=== PATIENT | female | born 1980 | race American Indian/Alaskan Native ===

== ENCOUNTER 2016-11-23 01:15 | Emergency (ER) | payer BC ==
[2016-11-23] MEDS ORDERED: TETRACAINE 0.5% ONE (04:02)
[2016-11-23] MEDS ORDERED: FUL-GLO OP ONE ×2 (04:02→04:03)
[2016-11-23] MEDS ORDERED: TETRACAINE 0.5% OU ONE (04:03)
--- NOTE | 2016-11-23 05:39 | Emergency Department Report ---
[facility] Chief Complaint: Eye Problems Stated Complaint: ALLERGIC REACTION Time Seen by Provider: 11/23/16 05:33 Duration: 1 Day Side: Bilateral Severity: moderate Symptoms: Yes Eye Itching, Yes Eye Redness, Yes Blurred Vision, No Eye Pain, No Mucous Drainage, No Purulent Drainage, No Preceding URI, No H/O Allergic Rhinitis, No Contact Lens Use, No Trauma, No Fever, No Headache ED Review of Systems ROS: Stated complaint: ALLERGIC REACTION Other details as noted in HPI Constitutional: denies: chills, fever Eyes: denies: eye pain, eye discharge, vision change ENT: denies: ear pain, throat pain Respiratory: denies: cough, shortness of breath, wheezing Cardiovascular: denies: chest pain, palpitations Endocrine: no symptoms reported Gastrointestinal: denies: abdominal pain, nausea, diarrhea Genitourinary: denies: urgency, dysuria, discharge Musculoskeletal: denies: back pain, joint swelling, arthralgia Skin: denies: rash, lesions Neurological: denies: headache, weakness, paresthesias Psychiatric: denies: anxiety, depression Hematological/Lymphatic: denies: easy bleeding, easy bruising ED Past Medical Hx - Past Medical History Hx Hypertension: No Hx Diabetes: Yes (gdm) Hx Deep Vein Thrombosis: No Hx Renal Disease: No Hx Sickle Cell Disease: No Hx Seizures: No Hx Asthma: No - Surgical History Additional Surgical History: C section X 2 - Social History Smoking Status: Never Smoker Substance Use Type: None - Medications Home Medications: Home Medications Medication Instructions Recorded Confirmed Last Taken Type Naphazoline HCl/Pheniramine [Eye 1 - 2 drops OP BID #15 ml 11/23/16 Unknown Rx Allergy Relief Drops] Ofloxacin 0.3% [Floxin Otic] 1 - 2 drops OT TID #10 ml 11/23/16 Unknown Rx [facility] Exam - Exam General: Vital signs noted. No distress. Alert and acting appropriately. Eye Exam: Both Injection, Both EOMI, Neither Chemosis, Neither Abnormal Pupil, Neither Eye Foreign Body, Neither Lid Foreign Body, Neither Mucous Discharge, Neither Purulent Discharge, Neither Fluorescein Uptake, Neither Corneal Edema, Neither Photophobia HEENT: No Nasal Congestion, No Pharyngeal Erythema Remainder of HEENT: Normal Lungs: Yes Clear Lung Sounds, Yes Good Air Exchange, No Wheezes, No Stridor, No Cough, No Nasal Flaring, No Retractions, No Use of Accessory Muscles ED Course Vital Signs 11/23/16 02:08 Temperature 98.4 F Pulse Rate 87 Respiratory 14 Rate Blood Pressure 143/97 Blood Pressure 143/97 [Left] O2 Sat by Pulse 98 Oximetry ED Medical Decision Making - Medical Decision Making 36-year-old female presents with allergic conjunctivitis of both eyes ED course: Vision is intact bilaterally. Vision acuity test performed, nml bilat see nurse's note wood lamp Showed no uptake Discussed the patient(this is vital signs are normal patient is in no acute distress Discussed worsening of symptoms or vision disturbances for patient's return to ED otherwise follow up with primary care Critical care attestation.: If time is entered above; I have spent that time in minutes in the direct care of this critically ill patient, excluding procedure time. ED Disposition Clinical Impression: Conjunctivitis of both eyes Qualifiers: Conjunctivitis type: acute Acute conjunctivitis type: atopic Qualified Code(s) : H10.13 - Acute atopic conjunctivitis, bilateral Disposition: - TO HOME OR SELFCARE Is pt being admited?: No Does the pt Need Aspirin: No Condition: Stable Instructions: Conjunctivitis (ED), [facility] (ED) Additional Instructions: Use eye drops as discussed. Symptoms worsen return to ED Follow-up with primary care physician. Prescriptions: Naphazoline HCl/Pheniramine [Eye Allergy Relief Drops] 1 - 2 drops OP BID #15 ml Ofloxacin 0.3% [Floxin Otic] 1 - 2 drops OT TID #10 ml Referrals: PRIMARY CARE, [Primary Care Provider] - 3-5 Days Forms: Accompanied Note, Work/School Release Form(ED) Time of Disposition: 05:42
[2016-11-23 05:45] VITALS: BP 151/91
== END 2016-11-23 06:01 | disposition home or self-care (01) ==
LOC: ED 01:15
DX: H10.13 Acute atopic conjunctivitis, bilateral (principal)